=== PATIENT | female | born 1975 | race Caucasian/White ===

== ENCOUNTER 2017-11-30 12:37 | Emergency (ER) | payer SELFPAY ==
[~2017-11-30] VITALS: Ht 149.9 cm; Wt 80.3 kg
[2017-11-30 13:04] VITALS: BP 130/59
--- NOTE | 2017-11-30 13:13 | NUR ---
Pt ambulates to bed 2 with a steady gait.
--- NOTE | 2017-11-30 13:24 | NUR ---
42 yo f bib self w/ c/o bilateral nose bleed after hitting her head on the wall. Pt reports that she was "rough housing" on the bed and hit her face when she turned around too fast. Pt denies LOC, denies n/v/d/fever/chills. A&O x 4. GCS 15. CMS intact. RR even and unlabored. Lungs bilaterally clear. Abd soft, non-tender. ER MD Perez notified. Pt needs met. safety precautions in place. Will continue to monitor.
[2017-11-30] MEDS ORDERED: KETOROLAC 60 MG/2 ML VIAL IM ONE (14:20)
[2017-11-30 15:32] VITALS: BP 111/64
--- NOTE | 2017-11-30 15:33 | NUR ---
Patient discharged with v/s stable. Written and verbal after care instructions given and explained. Patient alert, oriented and verbalized understanding of instructions. Ambulatory with steady gait. All questions addressed prior to discharge. ID band removed. Patient advised to follow up with PMD. Rx of MOTRIN/ALTAMIST given. Patient educated on indication of medication including possible reaction and side effects. Opportunity to ask questions provided and answered.
[2017-12-01] MEDS ORDERED: FLUTICASONE NASAL 50 MCG/ACTUATION 16 GM BTL NS SCH (09:00)
== END 2017-11-30 15:33 | disposition home or self-care (01) ==
LOC: MED 12:37
DX: S03.8XXA Sprain of joints and ligaments of other parts of head, initial encounter (principal); R04.0 Epistaxis; W22.01XA Walked into wall, initial encounter; Y93.72 Activity, wrestling; Y92.098 Other place in other non-institutional residence as the place of occurrence of the external cause; Y99.8 Other external cause status
CPT/HCPCS: 70486; 96372; 99284; J1885